=== PATIENT | female | born 2000 | race Two or more races ===

== ENCOUNTER 2021-11-08 18:22 | Outpatient (CLI) | payer OTHER ==
[2021-11-08] MEDS ORDERED: FOLIC ACID0.8 M1 PO (19:47)
== END 2021-11-09 09:17 | disposition home or self-care (01) ==
LOC: OBS/DEL 18:22
PROVIDERS: ATTEND Obstetrics & Gynecology
DX: O23.43 Unspecified infection of urinary tract in pregnancy, third trimester (principal); N39.0 Urinary tract infection, site not specified; O62.4 Hypertonic, incoordinate, and prolonged uterine contractions; Z3A.31 31 weeks gestation of pregnancy

== ENCOUNTER 2021-12-12 03:48 | Outpatient (CLI) | payer OTHER ==
[~2021-12-12 03:48] MED LIST: FOLIC ACID0.8 M1 PO
== END 2021-12-12 15:01 | disposition home or self-care (01) ==
LOC: OBS/DEL 03:48
PROVIDERS: ATTEND Obstetrics & Gynecology
DX: O47.03 False labor before 37 completed weeks of gestation, third trimester (principal); Z3A.35 35 weeks gestation of pregnancy; N93.0 Postcoital and contact bleeding

== ENCOUNTER 2021-12-27 02:33 | Outpatient (CLI) | payer OTHER | END 2021-12-27 02:48 | disposition left against medical advice (07) | LOC: OBS/DEL 02:33 | PROVIDERS: ATTEND Obstetrics & Gynecology | DX: Z53.21 Procedure and treatment not carried out due to patient leaving prior to being seen by health care provider (principal) ==

== ENCOUNTER 2022-01-05 06:23 | Inpatient (IN) | payer OTHER ==
[~2022-01-05] VITALS: Ht 162.6 cm; Wt 62.1 kg
== END 2022-01-07 12:33 | disposition home or self-care (01) | DRG 807 ==
LOC: OB/GYN → LDR 06:23 → OB/GYN 19:51
PROVIDERS: ADMIT Obstetrics & Gynecology; ATTEND Obstetrics & Gynecology
PROC: 10E0XZZ Delivery of Products of Conception, External Approach (ICD-10-PCS; principal; 2022-01-05)
PROC: 4A1HXCZ Monitoring of Products of Conception, Cardiac Rate, External Approach (ICD-10-PCS; 2022-01-05)
PROC: 0UQG7ZZ Repair Vagina, Via Natural or Artificial Opening (ICD-10-PCS; 2022-01-05)
DX: O71.4 Obstetric high vaginal laceration alone (principal); Z37.0 Single live birth; Z3A.39 39 weeks gestation of pregnancy; Z20.822 Contact with and (suspected) exposure to COVID-19